=== PATIENT | male | born 1960 | race Caucasian/White ===

== ENCOUNTER 2024-01-08 13:27 | Emergency (ER) | payer OTHER ==
--- NOTE | 2024-01-08 14:12 | ED Physician Documentation ---
History of Present Illness - Stated complaint Stated Complaint: CP/BACK PX - Chief complaint Chief Complaint: Cardiac - History obtained from History obtained from: Patient, Family - History of Present Illness Timing: How many weeks ago (several) Pain level max: 5 Pain level now: 5 - Additonal information Additional information: Patient is a 63-year-old male who presents to the emergency department stating that for several weeks to months he has had intermittent palpitations where he feels his heart racing and skipping beats. He states he has also had constant left sided chest pain for the past 1 week. Nothing makes it better or worse. No change with exertion, inspiration, palpation, movement. No calf swelling. No history of DVT or PE. He is on a statin at home. He went to the walk-in clinic today and was told his EKG looked like it was "in a holden area". And they sent him here for evaluation. Patient does not have any cardiac history. No history of CAD. The walk-in clinic did not send the patient with any paperwork or a copy of the EKG that they were concerned about. Review of Systems Constitutional: denies: Fever, Chills Nose: denies: Rhinorrhea / runny nose, Congestion Throat: denies: Sore throat Cardiac: reports: Palpitations Respiratory: denies: Dyspnea, Cough, Wheezing GI: denies: Vomiting, Diarrhea Skin: denies: Rash Musculoskeletal: denies: Neck pain, Back pain Neurologic: denies: Headache PD PAST MEDICAL HISTORY - Past Medical History Past Medical History: Yes Cardiovascular: High cholesterol, Arrhythmia Other Past Medical History: testicular cancer - Past Surgical History HEENT: Tonsil/Adenoidectomy - Present Medications Home Medications: Ambulatory Orders Medication Instructions Recorded Confirmed Rosuvastatin Calcium [Crestor] 10 mg PO DAILY 01/08/24 01/08/24 valACYclovir [Valtrex] 500 mg PO DAILY 01/08/24 01/08/24 - Allergies Allergies/Adverse Reactions: Allergies Allergy/AdvReac Type Severity Reaction Status Date / Time Iodinated Contrast Media Allergy Unknown Verified 01/08/24 13:48 - Social History Does the pt smoke?: No Smoking Status: Former smoker Does the pt drink ETOH?: Yes Does the pt have substance abuse?: No PD ED PE NORMAL - Vitals Vital signs reviewed: Yes - General General: Alert and oriented X 3, No acute distress - HEENT HEENT: PERRL, Moist mucous membranes - Neck Neck: Supple, no meningeal sign - Cardiac Cardiac: RRR, No murmur, Strong equal pulses - Respiratory Respiratory: No respiratory distress, Clear bilaterally - Abdomen Abdomen: Soft, Non tender, Non distended - Derm Derm: Warm and dry - Extremities Extremities: No edema, No calf tenderness / cord - Neuro Neuro: Alert and oriented X 3 - Psych Psych: Normal mood, Normal affect Results - Vitals Vitals: Vital Signs - 24 hr 01/08/24 01/08/24 01/08/24 13:36 14:13 15:35 Temperature 36.5 C Heart Rate 66 70 63 Respiratory 15 20 13 Rate Blood Pressure 126/88 H 132/89 H 120/85 H O2 Saturation 100 95 99 Oxygen O2 Source Room air - EKG (time done) 1358 EKG releavant findings:: EKG personally interpreted by author of this note. Relevant findings are: Rate: Rate (enter#) (65) Rhythm: NSR [place]: LAD Intervals: Normal PA QRS: Normal Ischemia: Normal ST segments - Labs Labs: Laboratory Tests 01/08/24 01/08/24 14:10 14:10 WBC 3.8 L RBC 5.03 Hgb 14.6 Hct 43.9 MCV 87.3 MCH 29.0 MCHC 33.3 RDW 12.0 Plt Count 173 MPV 8.8 Neut # (Auto) 1.8 Lymph # (Auto) 1.5 [place] # (Auto) 0.4 Eos # (Auto) 0.1 Baso # (Auto) 0.0 Absolute Nucleated RBC 0.00 Nucleated RBC % 0.0 Sodium 138 Potassium 3.6 Chloride 107 Carbon Dioxide 26 Anion Gap 5.0 L BUN 18 Creatinine 0.9 Estimated GFR (MDRD) 86 L Glucose 99 Calcium 9.7 Phosphorus 2.7 Magnesium 1.9 Total Bilirubin 1.3 H AST 19 ALT 21 Alkaline Phosphatase 53 Troponin I High Sens 2.5 Total Protein 7.2 Albumin 4.6 Globulin 2.6 Albumin/Globulin Ratio 1.8 Lipase 21 - Rads (name of study) cxr Relevant Findings:: Final report received, See rad report PD Medical Decision Making - ED course Complexity details: reviewed results, re-evaluated patient, considered differential (No ST elevation CA, no aortic dissection, no PE, no tension pneumothorax, no aortic aneurysm), d/w patient ED course: 63-year-old male with palpitations. Unclear etiology. No arrhythmias on telemetry here. No acute findings on EKG. Chest x-ray does not show any acute abnormalities. Recommend a Holter monitor/Zio patch with his primary care provider. In the meantime he could also perform home EKG testing with a [id number] device that he can then take to his primary care provider. Negative troponin. No evidence of of aortic dissection. Patient counseled regarding signs and symptoms for which I believe and urgent re-evaluation would be necessary. Patient with good understanding of and agreement to plan and is comfortable going home at this time This document was made in part using voice recognition software. While efforts are made to proofread this document, sound alike and grammatical errors may occur. Departure - Departure Disposition: 01 Home, Self Care Clinical Impression: Palpitations Chest pain Qualifiers: Chest pain type: unspecified Qualified Code(s): R07.9 - Chest pain, unspecified Condition: Good Instructions: ED Chest Pain Atypical Unkn Cause, ED Palpitations Follow-Up: Your,doctor in 1 week [Other] Comments: Your chest x-ray, EKG and laboratory testing did not show any acute abnormalities today. You do not have any arrhythmias on the patient information coordinator today. As we discussed we recommend a Zio patch/Holter monitor with your doctor. In the meantime you can also obtain a personal pershing missile crewmember such as [employer] on [employer] to record an EKG when you are having symptoms. Please return if you worsen. Forms: PCP List Discharge Date/Time: 01/08/24 15:36
--- NOTE | 2024-01-08 14:18 | XRAY Report ---
PROCEDURE: Chest 1V INDICATIONS: CHEST PAIN TECHNIQUE: One view of the chest was acquired. COMPARISON: None. FINDINGS: Surgical changes and devices: None. Lungs and pleura: No pleural effusions or pneumothorax. Lungs are clear. Mediastinum: Mediastinal contours appear normal. Heart size is normal. Bones and chest wall: No suspicious bony lesions. Overlying soft tissues appear unremarkable. IMPRESSION: No acute cardiopulmonary process. Reviewed by: Uriel Hills MD on 01/08/2024 2:17 PM PDT Approved by: Uriel Hills MD on 01/08/2024 2:17 PM PDT Station ID: [id number]
[2024-01-08 14:20] LABS: BASOPHILS % (AUTO) 0.3 %; EOSINOPHILS # (AUTO) 0.1 10^3/uL (0.0-0.7); EOSINOPHILS % (AUTO) 1.6 %; HCT - HEMATOCRIT 43.9 % (42.0-52.0); HGB - HEMOGLOBIN 14.6 g/dL (14.0-18.0); LYMPHOCYTES # (AUTO) 1.5 10^3/uL (1.5-3.5); MEAN CORPUSCULAR HGB CONC 33.3 g/dL (32.0-36.0); MEAN CORPUSCULAR VOLUME 87.3 fL (80.0-94.0); MEAN PLATELET VOLUME 8.8 fL (7.4-11.4); MONOCYTES # (AUTO) 0.4 10^3/uL (0.0-1.0); MONOCYTES % (AUTO) 11.4 %; NEUTROPHILS # (AUTO) 1.8 10^3/uL (1.5-6.6); NEUTROPHILS % (AUTO) 47.4 %; PLT - PLATELET COUNT 173 10^3/uL (130-450); RED BLOOD COUNT 5.03 10^6/uL (4.70-6.10); WHITE BLOOD COUNT 3.8 x10^3/uL (4.8-10.8)
[2024-01-08 14:35] LABS: ALBUMIN 4.6 g/dL (3.2-5.5); ALBUMIN/GLOBULIN RATIO 1.8 (1.0-2.2); BILIRUBIN,TOTAL 1.3 mg/dL (0.2-1.0); CALCIUM 9.7 mg/dL (8.5-10.3); CREATININE 0.9 mg/dL (0.6-1.3); MAGNESIUM 1.9 mg/dL (1.7-2.3); PHOSPHORUS 2.7 mg/dL (2.5-5.0); POTASSIUM 3.6 mmol/L (3.5-4.5); TOTAL PROTEIN 7.2 g/dL (6.4-8.9)
[2024-01-08 14:38] LABS: TROPONIN I HIGH SENSITIVITY 2.5 ng/L (2.3-19.7)
[2024-01-08 15:41] VITALS: BP 120/85; O2SAT 99
== END 2024-01-08 15:36 | disposition home or self-care (01) ==
LOC: ED 13:27
DX: R00.2 Palpitations (principal); Z87.891 Personal history of nicotine dependence
CPT/HCPCS: 36415; 80053; 83690; 83735; 84100; 84484; 85025; 93005; 99284

== ENCOUNTER 2024-02-07 11:53 | Emergency (ER) | payer OTHER ==
--- NOTE | 2024-02-07 12:20 | ED Physician Documentation ---
PD HPI CHEST PAIN - Stated complaint Stated Complaint: HEART RACING/CP/DIZZY - Chief complaint Chief Complaint: Cardiac - History obtained from History obtained from: Patient - Additional information Additional information: Has been having episodic palpitations, the last episode was about 2 weeks ago. There is no clear diagnosis, but his watch was suggesting that he had A-fib. He started to have rapid palpitations with dizziness and no chest pain about an hour ago. PD PAST MEDICAL HISTORY - Past Medical History Cardiovascular: High cholesterol, Arrhythmia Other Past Medical History: Testicular CA. - Past Surgical History Past Surgical History: Yes HEENT: Tonsil/Adenoidectomy - Present Medications Home Medications: Ambulatory Orders Medication Instructions Recorded Confirmed Rosuvastatin Calcium [Crestor] 10 mg PO DAILY 01/08/24 02/07/24 valACYclovir [Valtrex] 500 mg PO DAILY 01/08/24 02/07/24 Rosuvastatin Calcium [Crestor] 10 mg PO QDAC #30 tablet 01/29/24 02/07/24 valACYclovir [Valtrex] 500 mg PO QDAC #30 tablet 01/29/24 02/07/24 - Allergies Allergies/Adverse Reactions: Allergies Allergy/AdvReac Type Severity Reaction Status Date / Time Iodinated Contrast Media Allergy Mild Unknown Verified 02/07/24 12:17 - Social History Does the pt smoke?: No Smoking Status: Never smoker Does the pt drink ETOH?: Yes Does the pt have substance abuse?: No - Immunizations Immunizations are current?: Yes - POLST Patient has POLST: No PD ED PE NORMAL - Vitals Vital signs reviewed: Yes - General General: Alert and oriented X 3, No acute distress - Cardiac Cardiac: Other (Rapid and irregular without murmur) - Respiratory Respiratory: No respiratory distress, Clear bilaterally - Abdomen Abdomen: Non tender - Extremities Extremities: No edema, No calf tenderness / cord - Neuro Neuro: Alert and oriented X 3 Results - Vitals Vitals: Vital Signs - 24 hr 02/07/24 02/07/24 02/07/24 12:09 12:19 12:30 Temperature 37.7 C Heart Rate 145 H 131 H Respiratory 22 Rate Blood Pressure 151/135 H 111/82 H Blood Pressure 151/135 H [Left] O2 Saturation 100 02/07/24 02/07/24 02/07/24 12:35 12:40 12:45 Temperature Heart Rate 98 105 H 107 H Respiratory Rate Blood Pressure 145/86 H 108/83 H 120/94 H Blood Pressure [Left] O2 Saturation 02/07/24 02/07/24 02/07/24 12:46 13:00 13:15 Temperature Heart Rate 120 H 117 H 118 H Respiratory 22 16 Rate Blood Pressure 127/94 H 106/88 H 128/82 H Blood Pressure [Left] O2 Saturation 98 98 02/07/24 02/07/24 13:30 14:06 Temperature Heart Rate 120 H 76 Respiratory 18 16 Rate Blood Pressure 118/84 H 108/82 H Blood Pressure [Left] O2 Saturation 98 100 Oxygen O2 Source Room air - EKG (time done) 1204 EKG releavant findings:: EKG personally interpreted by author of this note. Relevant findings are: Rate: Rate (enter#) (148) Rhythm: Atrial fibrillation Intervals: Prolonged QT (QTC 494), Other (LAFB) Ischemia: Normal ST segments Computer interpretation: Agree with computer - Labs Labs: Laboratory Tests 02/07/24 02/07/24 12:10 12:10 WBC 5.5 RBC 5.46 Hgb 15.9 Hct 46.4 MCV 85.0 MCH 29.1 MCHC 34.3 RDW 12.1 Plt Count 193 MPV 8.8 Neut # (Auto) 2.7 Lymph # (Auto) 2.1 [place] # (Auto) 0.6 Eos # (Auto) 0.1 Baso # (Auto) 0.0 Absolute Nucleated RBC 0.00 Nucleated RBC % 0.0 Sodium 141 Potassium 3.7 Chloride 109 Carbon Dioxide 22 Anion Gap 10.0 BUN 21 H Creatinine 1.0 Estimated GFR (MDRD) 76 L Glucose 89 Calcium 10.2 Magnesium 2.0 Total Bilirubin 1.1 H AST 24 ALT 30 Alkaline Phosphatase 69 Total Protein 7.2 Albumin 4.7 Globulin 2.5 Albumin/Globulin Ratio 1.9 TSH 1.78 PD Medical Decision Making - ED course ED course: 63-year-old gentleman who is in rapid A-fib. It sounds like he is having somewhat frequent episodes of A-fib but this is the first time we have a definitive diagnosis. He was administered rate control with rates down in the 1 teens after dose of diltiazem and then started on procainamide drip. Discussed case by phone with Dr. Cerna in [place]. He has an appointment at the [facility] but not till June, Dr. Cerna just recommended calling again to see if the appointment can be expedited. Did not recommend specific a nticoagulation as [id number] score 0. Lab work demonstrates unremarkable CBC, unremarkable CMP. He is not having ischemic sounding chest pains with troponin was not ordered. Towards the end of the procainamide drip she did cardiovert into a normal sinus rhythm and felt much better. Departure - Departure Disposition: 01 Home, Self Care Clinical Impression: Atrial fibrillation Qualifiers: Atrial fibrillation type: paroxysmal Qualified Code(s): I48.0 - Paroxysmal atrial fibrillation Condition: Good Record reviewed to determine appropriate education?: Yes Instructions: Atrial Fibrillation Dc Comments: You were seen today for an episode of rapid atrial fibrillation. We were able to convert you out of it with a procainamide drip. Return if you worsen. Follow-up with the [facility], call tomorrow for an appointment with your prior nursing techn, Dr. Cristal Campos. Forms: PCP List
[2024-02-07 12:24] LABS: BASOPHILS % (AUTO) 0.4 %; EOSINOPHILS # (AUTO) 0.1 10^3/uL (0.0-0.7); EOSINOPHILS % (AUTO) 1.4 %; HCT - HEMATOCRIT 46.4 % (42.0-52.0); HGB - HEMOGLOBIN 15.9 g/dL (14.0-18.0); LYMPHOCYTES # (AUTO) 2.1 10^3/uL (1.5-3.5); LYMPHOCYTES % (AUTO) 38.3 %; MEAN CORPUSCULAR HEMOGLOBIN 29.1 pg (27.0-31.0); MEAN CORPUSCULAR HGB CONC 34.3 g/dL (32.0-36.0); MEAN PLATELET VOLUME 8.8 fL (7.4-11.4); MONOCYTES # (AUTO) 0.6 10^3/uL (0.0-1.0); MONOCYTES % (AUTO) 11.2 %; NEUTROPHILS # (AUTO) 2.7 10^3/uL (1.5-6.6); NEUTROPHILS % (AUTO) 48.5 %; PLT - PLATELET COUNT 193 10^3/uL (130-450); RED BLOOD COUNT 5.46 10^6/uL (4.70-6.10); RED CELL DISTRIBUTION WIDTH 12.1 % (12.0-15.0); WHITE BLOOD COUNT 5.5 x10^3/uL (4.8-10.8)
[2024-02-07] MEDS: diltiaZEM INJ 5 MG/ML VIAL IVP STA (12:27)
[2024-02-07 12:38] LABS: ALBUMIN 4.7 g/dL (3.2-5.5); ALBUMIN/GLOBULIN RATIO 1.9 (1.0-2.2); BILIRUBIN,TOTAL 1.1 mg/dL (0.2-1.0); CALCIUM 10.2 mg/dL (8.5-10.3); POTASSIUM 3.7 mmol/L (3.5-4.5); TOTAL PROTEIN 7.2 g/dL (6.4-8.9)
[2024-02-07 12:50] LABS: THYROID STIMULATING HORMONE 1.78 uIU/mL (0.34-5.60)
[2024-02-07] MEDS: PROCAINAMIDE IV STA (12:54)
[2024-02-07] MEDS: DEXTROSE 5% IV STA (12:54)
[2024-02-07 14:10] VITALS: BP 108/82; O2SAT 100
== END 2024-02-07 14:19 | disposition home or self-care (01) ==
LOC: ED 11:53
DX: I48.0 Paroxysmal atrial fibrillation (principal); E78.00 Pure hypercholesterolemia, unspecified; Z79.899 Other long term (current) drug therapy
CPT/HCPCS: 36415; 80053; 83735; 84443; 85025; 93005; 96365; 96375; 99284; 99285; J2690

== ENCOUNTER 2024-03-01 15:57 | Emergency (ER) | payer OTHER ==
--- NOTE | 2024-03-01 16:49 | XRAY Report ---
PROCEDURE: Knee 4+V RT INDICATIONS: Trauma TECHNIQUE: 4 views of the knee(s) were acquired. COMPARISON: None. FINDINGS: Bones: No fractures or dislocations. No suspicious bony lesions. Soft tissues: No knee joint effusion. No suspicious soft tissue calcifications or masses. IMPRESSION: No acute bony abnormality. If pain persists with conservative management, consider repeat x-ray in 10 -14 days or cross-sectional imaging. Reviewed by: Satish Minor MD on 03/01/2024 4:47 PM PDT Approved by: Satish Minor MD on 03/01/2024 4:47 PM PDT Station ID: [id number]
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
[2024-03-01 17:39] VITALS: BP 136/93; O2SAT 96
== END 2024-03-01 17:30 | disposition home or self-care (01) ==
LOC: ED 15:57
DX: S76.811A Strain of other specified muscles, fascia and tendons at thigh level, right thigh, initial encounter (principal); V23.49XA Other motorcycle driver injured in collision with car, pick-up truck or van in traffic accident, initial encounter; Y93.89 Activity, other specified; Y92.410 Unspecified street and highway as the place of occurrence of the external cause; Z87.891 Personal history of nicotine dependence
CPT/HCPCS: 99283

== ENCOUNTER 2024-03-28 08:58 | Outpatient (CLI) | payer OTHER ==
[2024-03-28 10:29] LABS: THYROID STIMULATING HORMONE 2.07 uIU/mL (0.34-5.60)
[2024-03-28 13:36] LABS: ESTIMATED AVERAGE GLUCOSE 100 mg/dL (70-100); HEMOGLOBIN A1c% 5.1 % (4.27-6.07)
--- NOTE | 2024-03-28 16:27 | CT Report ---
PROCEDURE: Lung Cancer Screen INDICATIONS: SMOKER TECHNIQUE: A CT scan of the chest was performed. Intravenous contrast media was not administered. Images were re corded and evaluated at appropriate window settings. Reformats: axial MIP of the chest, coronal and s agittal. For radiation dose reduction, the following was used: automated exposure control, adjustment of mA and/or kV according to patient size. COMPARISON: None. FINDINGS: Image quality: Excellent. Prior cancer history: Unsure. Lungs and pleura: No pleural effusions. No pneumothorax. No suspicious pulmonary nodules which requi re follow up. Bilateral lower lobe linear atelectasis/scar. Patent central airways. Mediastinum: Heart size is normal. No pericardial effusion. No large vessel abnormality. No mediastin al adenopathy by size criteria. No significant coronary calcifications. Chest wall and lower neck: Thyroid is unremarkable. No axillary or supraclavicular adenopathy by size . Bones: No aggressive osseous abnormality. Mild multilevel degenerative changes of the spine. Upper Abdomen: Unremarkable. IMPRESSION: No suspicious pulmonary nodules or consolidation. Lung RAD: 1 - Negative. Recommendation: Continue annual screening in 12 Months with LDCT Reviewed by: Richard Torres MD on 03/28/2024 4:25 PM PDT Approved by: Richard Torres MD on 03/28/2024 4:25 PM PDT Station ID: [id number]
--- NOTE | 2024-03-28 16:29 | Ultrasound Report ---
PROCEDURE: Aorta Screening INDICATIONS: SMOKER TECHNIQUE: Real time scanning was performed of the aorta and iliac arteries, with image documentatio n. COMPARISON: None. FINDINGS: Aorta: Proximal aortic diameter measures 2.9 x 2.8 cm. Mid-aorta measures 2.1 x 2.1 cm. Distal aor tic diameter is 1.4 x 1.4 cm. Iliac arteries: Right common iliac artery measures 1 x 1.1 cm. Left common iliac artery measures 1 x 1 cm. 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 Recommend repeat imaging in 5 years. 2.Bilateral common iliac arteries are normal in caliber where visualized. Recommended intervals for follow-up imaging of ectatic aortas and abdominal aortic aneurysms, per ACR consensus guidelines: 2.5-2.9 cm: 5 years 3.0-3.4 cm: 3 years 3.5-3.9 cm: 2 years 4.0-4.4 cm: 1 year 4.5-4.9 cm: 6 months + endovascular referral 5.0-5.5 cm: 3-6 months + endovascular referral Reviewed by: Richard Torres MD on 03/28/2024 4:27 PM PDT Approved by: Richard Torres MD on 03/28/2024 4:27 PM PDT Station ID: [id number]
== END 2024-03-28 08:59 | disposition home or self-care (01) ==
LOC: DI 08:58
PROVIDERS: ATTEND Family Medicine
DX: Z12.2 Encounter for screening for malignant neoplasm of respiratory organs (principal); F17.210 Nicotine dependence, cigarettes, uncomplicated; Z13.6 Encounter for screening for cardiovascular disorders; I77.819 Aortic ectasia, unspecified site; I48.0 Paroxysmal atrial fibrillation; N40.1 Benign prostatic hyperplasia with lower urinary tract symptoms
CPT/HCPCS: 36415; 83036; 84153; 84443